=== PATIENT | male | born 1975 | race African-American/Black ===

== ENCOUNTER 2018-04-05 01:50 | Emergency (ER) | payer MEDICAID, OTHER ==
[~2018-04-05] VITALS: Ht 190.5 cm; Wt 108.9 kg
[2018-04-05] MEDS ORDERED: CLINDAMYCIN HCL 300 MG CAPSULE ONE (02:20)
--- NOTE | 2018-04-05 02:26 | NUR ---
Patient discharged to home in stable conditon. Written and verbal after care instructions given. Patient verbalizes understanding of instructions. Patient able to ambulate out of the department without any c/o pain and steady gait.
[2018-04-05 02:27] VITALS: BP 138/89
[2018-04-05] MEDS ORDERED: CLINDAMYCIN HCL 150 MG CAPSULE PO ONE (02:30)
== END 2018-04-05 02:29 | disposition home or self-care (01) ==
LOC: ER 01:52
DX: R07.9 Chest pain, unspecified (principal); B95.8 Unspecified staphylococcus as the cause of diseases classified elsewhere
CPT/HCPCS: 93005; A4663